=== PATIENT | female | born 1980 | race Caucasian/White ===

== ENCOUNTER 2025-05-28 14:03 | Emergency (ER) | payer MEDICAID ==
[~2025-05-28] VITALS: Ht 170.2 cm; Wt 95.9 kg
[~2025-05-28 14:03] MED LIST: ALBUPOW26
--- NOTE | 2025-05-28 14:56 | ED.PDOC ---
General HPI Comments A 44 YEAR OLD FEMALE PRESENTS TO THE ED WITH COMPLAINT OF RIGHT FLANK PAIN. PATIENT STATES SHE HAS A HISTORY OF KIDNEY STONES AND A LEFT NEPHRECTOMY AND HAS BEEN EXPERIENCING RIGHT FLANK PAIN OFF AND ON FOR THE PAST 3 MONTHS. PATIENT REPORTS SHE WENT TO HER UROLOGIST EARLIER TODAY WHO SENT HER TO THE ED TODAY FOR AN ULTRASOUND OF HER KIDNEYS AND POSSIBLE CT SCAN OF HER ABDOMEN AND PELVIS TO RULE OUT KIDNEY STONES IN HER RIGHT KIDNEY. PATIENT DENIES DYSURIA, HEMATURIA, FEVER, CHILLS, SHORTNESS OF BREATH, CHEST PAIN, ABDOMINAL PAIN, NAUSEA, VOMITING, HEADACHE, OR OTHER COMPLAINTS. NO OTHER SYMPTOMS OR MODIFYING FACTORS AT THIS TIME. PATIENT IS ALERT, ORIENTED X 4, AND HAS STEADY GAIT. Chief Complaint: Flank Pain Time Seen by MD: 14:30 Primary Care Provider: NONE Reviewed notes: Nurses Notes, Medications, Allergies Allergies: Coded Allergies: Cephalexin (Verified Allergy, Unknown, 05/28/25) Iodine (Verified Allergy, Unknown, 05/28/25) Home Meds Reported Medications Albuterol (Albuterol) Pow 11/23/11 Information Source: Patient Mode of Arrival: Ambulatory Severity: Moderate Inability to void: None Timing: Months Duration: Since onset Prehospital treatment: None Onset: Spontaneous Symptoms: Other (RIGHT FLANK PAIN) History of: Kidney stone Location: (R) Flank, None Modifying factors: None associated signs and symptoms: None Past Medical History PAST MEDICAL HISTORY: Asthma, Kidney Stones Surgical History (Other): LEFT NEPHRECTOMY 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 Family History Family History: Reviewed,noncontributory to illness, No family hx of DM, No family hx of HTN Social History Smoker: Cigarettes, Less Than 1 Pack/Day Alcohol: Occasionally Drugs: Denies Drug Use Lives In: Home Constitutional: denies: chills, diaphoresis, fatigue, fever, malaise, sweats, weakness, others EENTM: denies: blurred vision, double vision, ear bleeding, ear discharge, ear drainage, ear pain, ear ringing, eye pain, eye redness, hearing loss, mouth p ain, mouth swelling, nasal discharge, nose bleeding, nose congestion, nose pain, photophobia, tearing, throat pain, throat swelling, voice changes, others Respiratory: denies: cough, hemoptysis, orthopnea, SOB at rest, shortness of br eath, SOB with excertion, stridor, wheezing, others Cardiovascular: denies: chest pain, dizzy spells, diaphoresis, Dyspnea on exertion, edema, irregular heart beat, left arm pain, lightheadedness, palpitations, PND, syncope, others Gastrointestinal: denies: abdomen distended, abdominal pain, blood streaked bowels, constipated, diarrhea, dysphagia, difficulty swallowing, hematemesis, melena, nausea, poor appetite, poor fluid intake, rectal bleeding, rectal pain, vomiting, others Genitourinary: reports: flank pain; denies: abnormal vagina bleeding, burning, dyspareunia, dysuria, frequency, hematuria, incontinence, pain, , vagina discharge, urgency, others Neurological: denies: dizziness, fainting, headache, left sided numbness, left sided weakness, numbness, paresthesia, pre-existing deficit, right sided numbness, right sided weakness, seizure, speech problems, tingling, tremors, weakness, others Musculoskeletal: denies: back pain, gout, joint pain, joint swelling, muscle pain, muscle stiffness, neck pain, others Integumetry: denies: bruises, change in color, change in hair/nails, dryness, laceration, lesions, lumps, rash, wounds, others Allergic/Immunocompromised: denies: Difficulty Healing, Frequent Infections, Hives, Itching, others Hematologic/Lymphatic: denies: anemia, blood clots, easy bleeding, easy bruis ing, swollen glands, others Endocrine: denies: excessive hunger, excessive sweating, excessive thirst, exc essive urination, flushing, intolerance to cold, intolerance to heat, unexplained weight gain, unexplained weight loss, others Psychiatric: denies: anxiety, bipolar disorder, depression, hopeless, panic disorder, schizophrenia, sleepless, suicidal, others All Other Systems: Reviewed and Negative Physical Exam General Appearance: No Apparent Distress, Normal HEENT: Normal ENT Inspection, PERRL/EOMI, Pharynx Normal, TMs Normal Neck: Full Range of Motion, Non-Tender, Normal, Normal Inspection Respiratory: Chest Non-Tender, Lungs Clear, No Accessory Muscle Use, No Respiratory Distress, Normal Breath Sounds Cardiovascular: No Edema, No JVD, No Murmur, No Gallop, Normal Peripheral Pulses, Regular Rate/Rhythm Breast Exam: Deferred Gastrointestinal: No Organomegaly, No Pulsatile Mass, Normal Bowel Sounds, Soft, Tenderness (RIGHT FLANK, NO GUARDING AND REBOUND TENDERNESS, NO CVA TENDERNESS. ) Genitalia: Deferred Pelvic: Normal External Exam Rectal: Deferred Extremities: No calf tenderness, Normal capillary refill, Normal inspection, Normal range of motion, Non-tender, No pedal edema Musculoskeletal : Apperance: Normal Neurologic: Alert, convention manager II-XII nml as Tested, No Motor Deficits, Normal Affect, Normal Mood, No Sensory Deficits Cerebellar Function: Normal Reflexes: Normal Skin: Dry, Normal Color, Warm Peripheral Pulses: 2+ carotid (R), 2+ carotid (L) Lymphatic: No Adenopathy Was a procedure done? Was a procedure done?: No Differential Diagnosis Kidney stone (Female): DJD, Musculoskeletal pain, Pyelonephritis, Renal failure, Strain, Urolithiasis Kidney stone (Male): N/A Penile/Scrotal: N/A Urinary Problem (Male): N/A Urinary Problem (Female): Pyelonephritis, Urolithiasis, UTI, N/A X-Ray, Labs, Meds, VS Vital Signs Date Time Temp Pulse Resp B/P (MAP) Pulse Ox O2 Delivery O2 Flow Rate FiO2 05/28/25 16:54 72 19 99 Room Air 05/28/25 16:54 98.1 72 19 122/86 (98) 99 98.1 05/28/25 14:04 98.0 94 18 116/60 98 98.0 Lab Test 05/28/25 15:40 05/28/25 15:30 Range/Units Urine Color Colorless Yellow Urine Clarity Clear Clear Urine pH 6.5 5.0-9.0 Urine Specific Shannon 1.006 1.001-1.035 Urine Protein Negative Negative Urine Ketones Negative Negative Urine Blood Negative Negative /uL Urine Nitrite Negative Negative Urine Bilirubin Negative Negative Urine Urobilinogen Normal Negative mg/dL Urine Leukocyte Esterase 1+ Negative /uL Urine RBC 1 0 - 4 /hpf Urine Microscopic WBC 1 0-5 /HPF Urine Squamous Epithelial Cells Few <5 /hpf Urine Bacteria Few H None Seen /hpf Urine Glucose Normal Normal mg/dL White Blood Count 9.8 4.4-10.8 10^3/uL Red Blood Count 4.24 4.0-5.20 10^6/uL Hemoglobin 13.5 12.2-16.2 g/dL Hematocrit 40.3 36.0-46.0 % Mean Corpuscular Volume 95.0 80.0-100.0 fL Mean Corpuscular Hemoglobin 31.8 28.0-32.0 pg Mean Corpuscular Hemoglobin Concent 33.5 32.0-36.0 g/dL Red Cell Distribution Width 13.4 11.8-14.3 % Platelet Count 270 140-450 10^3/uL Mean Platelet Volume 9.4 6.9-10.8 fL Neutrophils (%) (Auto) 61.0 37.0-80.0 % Lymphocytes (%) (Auto) 24.2 10.0-50.0 % Monocytes (%) (Auto) 8.9 0.0-12.0 % Eosinophils (%) (Auto) 4.6 0.0-7.0 % Basophils (%) (Auto) 1.3 0.0-2.0 % Neutrophils # (Auto) 6.0 1.6-8.6 10 ^3/uL Lymphocytes # (Auto) 2.4 0.4-5.4 10 ^3/uL Monocytes # (Auto) 0.9 0-1.3 10 ^3/uL Eosinophils # (Auto) 0.5 0-0.8 10 ^3/uL Basophils # (Auto) 0.1 0-0.2 10 ^3/uL Nucleated Red Blood Cells 0.0 % Sodium Level 139 136-145 mmol/L Potassium Level 5.0 3.5-5.1 mmol/L Chloride Level 105 98-107 mmol/L Carbon Dioxide Level 26 20-31 mmol/L Anion Gap 8 5-15 Blood Urea Nitrogen 10 9-23 mg/dL Creatinine 1.14 H 0.550-1.02 mg/dL Glomerular Filtration Rate Calc 60 >90 mL/min BUN/Creatinine Ratio 8.8 L 10.0-20.0 Serum Glucose 84 74-106 mg/dL Calcium Level 9.6 8.7-10.4 mg/dL Exam: CT CT AB PEL WO CON-NO ORAL OR IV History: flank pain Comparison Study: None TECHNIQUE: Multidetector CT of the abdomen pelvis was performed from lung bases to pubic symphysis. Imaging was performed without IV contrast. Axial, coronal and sagittal multiplanar reformats were obtained from the axial data set by the technologist. Radiation Dose Information: CT Dose: CTDI volume is 20.68 mGy. Dose-length product is 1097.79 mGy*cm FINDINGS: The lung bases are clear. Partially visualized heart is unremarkable. Liver, spleen, gallbladder, pancreas and adrenal glands are unremarkable. The left kidney is not visualized and may be surgically absent. Mild right pelviectasis. Otherwise, kidneys, ureters and urinary bladder are unremarkable. Uterus and adnexa are unremarkable. Stomach is unremarkable. Small bowel loops unremarkable. Appendix is unremarkable. Large bowel is unremarkable. Small to moderate amount of fecal material within the colon. No evidence of intraperitoneal free air or free fluid. No aortic aneurysm. No significant lymphadenopathy. Tiny fat containing umbilical hernia. Soft tissues are unremarkable. Foci of calcification over the bilateral pelvic bones and bilateral proximal femur which may represent bone islands with Blastic lesions not excluded. No evidence of acute osseous abnormalities. IMPRESSION: No evidence of acute abdominopelvic abnormalities. Small to moderate amount of fecal material within the colon. Left kidney is not visualized and may be surgically absent. Mild right pelviectasis with no obstructing calculus noted. ATED BY: TABATHA SAMUELS DO DICTATED DATE/TIME: 05/28/25 1536 SIGNED BY: TABATHA SAMUELS DO SIGNED DATE/TIME: 05/28/25 1536 CC: RENAL ULTRASOUND History: FLANK PAIN Comparison: None Technique: Multiple real-time sonographic images of the kidney and bladder were obtained in conjunction with Doppler imaging. Findings: The right kidney measures 12.1 cm and demonstrates no evidence of hydronephrosis, perinephric fluid collection, or shadowing stone. The left kidney is removed/nonvisualized Urinary bladder: Prevoid urinary bladder volume is 134 mL. Possible bladder calculus /echogenic mass measuring 8 mm Impression: No right hydronephrosis. Left kidney nonvisualized/nephrectomy. Possible 8 mm bladder mass/ calculus. Recommend urology consultation for further evaluation. CT cystogram can also be obtained to evaluate. ATED BY: MARLO NORRIS MD DICTATED DATE/TIME: 05/28/25 1540 SIGNED BY: MARLO NORRIS MD SIGNED DATE/TIME: 05/28/25 1540 CC: X-Ray, Labs, Meds, VS Comment EXTERNAL MEDICAL RECORDS REVIEWED: [NONE] INDEPENDENT HISTORIANS: [NONE] SOCIAL DETERMINANTS OF HEALTH: [NONE] LABS ORDERED: CBC, BMP, UA REVIEWED AND INTERPRETED RESULTS: IMAGING ORDERED: CT ABD/PEL, US RENAL TREATMENTS ORDERED: PT DECLINED PAIN MEDICATION AND RX. PROCEDURES PERFORMED: NONE CRITICAL CARE TIME: NONE I HAVE DISCUSSED THE PATIENT WITH THE ATTENDING PHYSICIAN DR. RAMACHANDRAN AND HE AGREES WITH THE PATIENT'S PLAN OF CARE AND DISPOSITION. 1630: I HAVE CALLED THE PATIENT'S UROLOGIST AND HAVE SPOKE WITH JINA NGUYỄN AND SHE HAS SAID SHE LOOKED AT THE PATIENT'S IMAGING RESULTS AND STATES THE PATIENT IS OKAY TO BE DISCHARGED HOME AND CAN FOLLOW UP WITH HER OFFICE. BASED ON HISTORY OF PRESENT ILLNESS, AND PHYSICAL EXAM, PATIENT WILL BE DISCHARGED HOME. SHARED DECISION MAKING: DISCUSSED WITH PATIENT THAT THEIR WORKUP WAS NORMAL. PATIENT INSTRUCTED TO FOLLOW UP WITH PRIMARY CARE PROVIDER IN 1-2 DAYS FOR RE- EVALUATION OF SYMPTOMS. PATIENT VERBALIZES UNDERSTANDING TO RETURN TO ED FOR NEW OR WORSENING SYMPTOMS OR IF FOLLOW UP WITH PCP CANNOT BE OBTAINED. PATIENT FEELS COMFORTABLE GOING HOME AT THIS TIME. ALL QUESTIONS ADDRESSED AT TIME OF DISCHARGE. Images Reviewed?: Images reviewed and evaluated by me Time of 1ST Reevaluation: 17:00 Reevaluation 1ST: Improved Consultation: Urology (1630: I HAVE CALLED THE PATIENT'S UROLOGIST AND HAVE SPOKE WITH JINA NGUYỄN AND SHE HAS SAID SHE LOOKED AT THE PATIENT'S IMAGING RESULTS AND STATES THE PATIENT IS OKAY TO BE DISCHARGED HOME AND CAN FOLLOW UP WITH HER OFFICE.) Patient Education/Counseling: Diagnosis, Treatment, Need For Follow Up Family Education/Counseling: Diagnosis, Treatment, Need For Follow Up Medical Screening: No EMC Exist At This Time SEPSIS Sepsis Screen Date sepsis recognized/suspect: May 28, 2025 Time Sepsis recognized/suspect: 1404 Recent Procedure: No On Antibiotic Therapy: No Respiratory Rate >20: No Heart Rate >90: Yes Temp<36 C (96.8 F) or >38.3 C: No SBP <90 or MAP <65 mmHG: No New Acute Mental Status Change: No Is the patient on CPAP, BIPAP,: No Physician Orders Kidney (05/28/25 14:45) Ct Ab Pel Wo Con-No Oral Or Iv (05/28/25 14:49) Vital Signs Date Time Temp Pulse Resp B/P (MAP) Pulse Ox O2 Delivery O2 Flow Rate FiO2 05/28/25 16:54 72 19 99 Room Air 05/28/25 16:54 98.1 72 19 122/86 (98) 99 98.1 05/28/25 14:04 98.0 94 18 116/60 98 98.0 Laboratory Tests Test 05/28/25 15:30 White Blood Count 9.8 10^3/uL (4.4-10.8) Departure 1 Departure Time of Disposition: 17:01 Impression: Primary Impression: Calcification of bladder Additional Impression: Constipation Qualified Codes: K59.00 - Constipation, unspecified Disposition: 01 HOME / SELF CARE / HOMELESS Condition: Stable Additional Instructions: FOLLOW-UP WITH PCP IN 1 TO 2 DAYS. TAKE MEDICATIONS PRESCRIBED. RETURN TO ED FOR ANY NEW OR WORSENING SYMPTOMS. Discharged With: Self, Relative (Mother) Critical Care Note Critical Care Time?: No Stability Stability form required: No I personally scribed for JESSICA WATSON ([email or web address]) on 05/28/25 at 14:55. Electronically submitted by Kashmir Purcell ([email or web address]). I personally scribed for JESSICA WATSON ([email or web address]) on 05/28/25 at 16:44. Electronically submitted by Kashmir Purcell ([email or web address]). JESSICA WATSON May 28, 2025 14:55
--- NOTE | 2025-05-28 15:39 | DVH ---
Exam: CT CT AB PEL WO CON-NO ORAL OR IV History: flank pain Comparison Study: None TECHNIQUE: Multidetector CT of the abdomen pelvis was performed from lung bases to pubic symphysis. I maging was performed without IV contrast. Axial, coronal and sagittal multiplanar reformats were obta ined from the axial data set by the technologist. Radiation Dose Information: CT Dose: CTDI volume is 20.68 mGy. Dose-length product is 1097.79 mGy*cm FINDINGS: The lung bases are clear. Partially visualized heart is unremarkable. Liver, spleen, gallbladder, pancreas and adrenal glands are unremarkable. The left kidney is not visualized and may be surgically absent. Mild right pelviectasis. Otherwise, kidneys, ureters and urinary bladder are unremarkable. Uterus and adnexa are unremarkable. Stomach is unremarkable. Small bowel loops unremarkable. Appendix is unremarkable. Large bowel is unr emarkable. Small to moderate amount of fecal material within the colon. No evidence of intraperitoneal free air or free fluid. No aortic aneurysm. No significant lymphadenopathy. Tiny fat containing umbilical hernia. Soft tissues are unremarkable. Foci of calcification over the bilateral pelvic bones and bilateral proximal femur which may represent bone islands with Blastic les ions not excluded. No evidence of acute osseous abnormalities. IMPRESSION: No evidence of acute abdominopelvic abnormalities. Small to moderate amount of fecal material within the colon. Left kidney is not visualized and may be surgically absent. Mild right pelviectasis with no obstructing calculus noted.
--- NOTE | 2025-05-28 15:40 | DVH ---
RENAL ULTRASOUND History: FLANK PAIN Comparison: None Technique: Multiple real-time sonographic images of the kidney and bladder were obtained in conjuncti on with Doppler imaging. Findings: The right kidney measures 12.1 cm and demonstrates no evidence of hydronephrosis, perinephric fluid c ollection, or shadowing stone. The left kidney is removed/nonvisualized Urinary bladder: Prevoid urinary bladder volume is 134 mL. Possible bladder calculus /echogenic mass measuring 8 mm Impression: No right hydronephrosis. Left kidney nonvisualized/nephrectomy. Possible 8 mm bladder mass/ calculus. Recommend urology consultation for further evaluation. CT cyst ogram can also be obtained to evaluate.
[2025-05-28 15:47] LABS: Hematocrit 40.3 % (36.0-46.0); Hemoglobin 13.5 g/dL (12.2-16.2); Mean Corpuscular Hemoglobin 31.8 pg (28.0-32.0); Mean Corpuscular Volume 95.0 fL (80.0-100.0); Nucleated Red Blood Cells % 0.0 %
[2025-05-28 15:53] LABS: Chloride 105 mmol/L (98-107); Potassium 5.0 mmol/L (3.5-5.1); Sodium 139 mmol/L (136-145)
[2025-05-28 15:54] LABS: Anion Gap 8 (5-15); Calcium 9.6 mg/dL (8.7-10.4); Carbon Dioxide 26 mmol/L (20-31)
[2025-05-28 15:59] LABS: BUN/Creatinine Ratio 8.8 (10.0-20.0); Blood Urea Nitrogen 10 mg/dL (9-23); Glucose 84 mg/dL (74-106)
[2025-05-28 16:32] LABS: Urine Protein, UAD Negative (Negative)
[2025-05-28 16:54] VITALS: BP 122/86; PULSE 72; RESP 19; TEMP 98.1; O2SAT 99
== END 2025-05-28 16:58 | disposition home or self-care (01) ==
LOC: ER 14:03
DX: N32.89 Other specified disorders of bladder (principal); K59.00 Constipation, unspecified; F17.210 Nicotine dependence, cigarettes, uncomplicated; F10.90 Alcohol use, unspecified, uncomplicated; Z87.442 Personal history of urinary calculi; Z88.1 Allergy status to other antibiotic agents; Z88.8 Allergy status to other drugs, medicaments and biological substances; Z90.5 Acquired absence of kidney; Y90.9 Presence of alcohol in blood, level not specified
CPT/HCPCS: 36415; 74176; 76775; 80048; 81001; 85025